=== PATIENT | male | born 1985 | race African-American/Black ===

== ENCOUNTER → 2017-11-28 | Outpatient (CLI) | payer OTHER ==
[~2017-11-28] MED LIST: REGADENOSON 0.4 MG/5 ML SYR IV ONE
--- NOTE | 2017-11-28 17:54 | MYOCARDIAL PERFUSION SCAN ---
NUCLEAR STRESS TEST STUDY REQUESTED BY: Brian Akhtar. ONE-DAY NUCLEAR MEDICINE TECHNETIUM-99M MYOCARDIAL PERFUSION SCAN. INDICATION: Abnormal EKG, history of coronary artery disease. ECHOCARDIOGRAM: Baseline EKG sinus rhythm, ventricular rate of 53. Right axis deviation, incomplete right bundle branch block, notable T-wave inversions in V3 through V6 and II, III, and aVF. Stress EKG: Heart rate nishi from 52 up to 85, representing 44% of maximum predicted heart rate. Blood pressure was 108/63. There was no Lexiscan-induced chest pain or arrhythmias. TECHNIQUE: For the stress portion of the study 29.3 mCi of technetium-99m Cardiolite IV was injected at 11:30 a.m. on 11/28/2017. Thirty minutes following the injection, imaging of the heart was performed in multiple projections. For the rest portion of the study, 10.2 mCi of technetium-99m Cardiolite was injected IV at 9:50 a.m. One hour following the injection, imaging of the heart was performed in the same projections. FINDINGS: Rotating raw images were reviewed in detail. Potential sources of attenuation included minimal gut uptake, minimal diaphragmatic attenuation. There was no significant extracardiac pathologic uptake. The short axis, vertical long axis, horizontal long axis images were reviewed in detail. There was a small, subtle fixed anterior perfusion defects from the mid to apical segment. There was no significant reversibility. LV size was normal with an end-diastolic volume of 112. LV function was normal with a calculated EF of 63% and no regional wall motion abnormalities. IMPRESSION: 1. Negative myocardial perfusion scan for Lexiscan-induced ischemia. 2. Subtle, fixed anterior perfusion defect likely represents artifact in the setting of preserved wall motion. Less likely small prior anterior infarct. 3. Normal left ventricular size and function. Calculated ejection fraction of 63% with no regional wall motion abnormalities. 4. Nondiagnostic ECG due to inability to reach target heart rate with Lexiscan. [facility]
== END | disposition home or self-care (01) ==
LOC: C.NUCL 09:18
PROVIDERS: ATTEND Family Medicine
DX: I51.9 Heart disease, unspecified (principal); R94.31 Abnormal electrocardiogram [ECG] [EKG]